=== PATIENT | female | born 1955 | race African-American/Black ===

== ENCOUNTER 2019-09-10 11:56 | Emergency (ER) | payer MEDICARE, OTHER ==
[~2019-09-10] VITALS: Ht 162.6 cm; Wt 68.0 kg
[~2019-09-10 11:56] MED LIST: ACCU CHEK COMP MC; GLIPIZIDE5 MG ORAL; GLUCOPHAGE500 MG ORAL; GLUCOTROL5 MG ORAL; METFORMIN HCL1000 M1 ORAL; METFORMIN HCL1000 M1 PO; PREMARIN0.3 MG ORAL
--- NOTE | 2019-09-10 12:29 | Emergency Room Report ---
History of Present Illness General Chief Complaint: General Complaint Source: Patient (July Fisher Perla) Present Illness HPI History of present illness: 64-year-old diabetic female with past medical history of diabetes presents with complaint of "a bump" on her upper stomach for the last "2 months". Last bowel movement was yesterday and normal. Last oral intake was this morning. Patient states that the bump has progressively been getting bigger. No associated pain, nausea, unintended weight loss, vomiting, diarrhea, hematuria, dysuria, fever, chills. The patient's symptoms were gradual onset, severity was mild, duration since 60 days. Past medical history: Diabetes Past surgical history: Hysterectomy Smoking: Denies Alcohol use: Denies Drug use: Denies Review of systems: CONST: No fevers or chills, No night sweats PULMONARY: No productive cough, No shortness of breath CARDIAC: No chest pain, No palpitations GI: No vomiting, No diarrhea , No melena_or_BRBPR : No dysuria, No hematuria, No discharge NEURO: No new_focal_weakness_or_numbness, No confusion, No vision changes 14 point Review of Systems is otherwise negative except per HPI Physical Exam: GENERAL: Awake_alert_ nontoxic, no acute distress Spo2 98% on [RA], [normal] EYES: Extraocular muscles are intact. Conjunctivae clear. Lids without swelling ENT: External nose and ear normal_in_appearance. Oropharynx clear. Head_ atraumatic, Moist_oral_mucosa NECK: No JVD. No meningismus. No thyromegaly. Supple. Trachea midline RESP: Normal respiratory effort. Symmetric rise. No stridor. Clear_to_ auscultation_No_rales_No_wheezes CARDIAC: Regular rate and regular rhythm on_auscultation No_significant pedal edema. ABDOMEN: Epigastric abdominal mass. Nonpulsating. Nontender to palpation. No CVA tenderness to palpation Soft. Nondistended. Nontender_No_rebound_or_guarding. MSK: Normal muscle tone, without rigidity. Extremities without asymmetric deformity or swelling. SKIN: Warm and dry. No visible cyanosis or pallor NEUROLOGIC: Alert, oriented x3. Motor_and_sensation_grossly_intact. No truncal ataxia. Gait_normal Psych: Normal mood and affect, normal judgment and insight - COORDINATION OF CARE Case was discussed with: Patient Any labs and imaging that were ordered were interpreted as part of the medical decision making: Medical Decision Making/Plan: Differential diagnosis includes mass, ileus, small bowel obstruction, cholecystitis, choledocholithiasis, hepatitis, small bowel obstruction, volvulus , AAA, pancreatitis, atypical appendicitis, gastroparesis, gastritis, peptic ulcer disease, among others. Patient is afebrile, without any significant tenderness in the RUQ, and a negative Florence sign. There is a tennis ball sized-noncompressible mass in the midepigastric region. Will obtain CT imaging in order to further evaluate the etiology of this mass. Labs show critical hyperkalemia. EKG shows prolonged qtc of 461ms. Hyperkalemic cocktail given. CT scan ordered to eval abdominal mass. The patient denies any bloody stool and has no pain out of proportion to exam, and no significant risk factors for mesenteric ischemia such as atrial fibrillation or severe PAD/PVD (peripheral arterial / vascular disease) The patients symptoms are not consistent with ACS (acute coronary syndrome), symptoms are not exertional. Patient will be admitted for hyperkalemia. (July Fisher D.O.) Allergies: Coded Allergies: No Known Allergies (Unverified , 05/29/12) COVID-19 Screening Contact w/high risk pt: No Experienced COVID-19 symptoms?: No COVID-19 Testing performed [employer] SCARFER TENDER: No (July Fisher D.O.) Patient History Now: No (July Fisher D.O.) Nursing Documentation-H Hx Diabetes: Yes - type 2 (July Fisher.[place]) Physical Exam Vital Signs Date Time Temp Pulse Resp B/P (MAP) Pulse Ox O2 Delivery O2 Flow Rate FiO2 09/10/19 12:10 98.1 73 20 145/93 (110) 97 Room Air Sp02 EP Interpretation: reviewed, normal (July Fisher.[place]) Procedures Critical Care Time Critical Care Time Critical Care Statement Organ systems at risk include: [cardiac / circulatory] Critical care performed for 45 minutes. Time is exclusive of separately billable procedures. Time includes: direct patient care, continuous monitoring and multiple patient reassessment, coordination of patient care, review of patient's medical records , medical consultation, family consultation regarding treatment decisions and documentation of patient care. (July Fisher D.O.) Critical Care Time Total critical care time: Approximately 31 minutes Due to a high probability of clinically significant, life threatening deterioration, the patient required the highest level of preparedness to intervene emergently and I personally spent this critical care time directly and personally managing the patient. This critical care time included obtaining a history, examining the patient, pulse oximetry, ordering and reviewing studies , ordering treatments, evaluating response to treatment and updating management plan as needed, frequent reassessment and discussion with other providers as well as arranging for ultimate disposition. This critical to care time was performed to assess and manage the high probability of life-threatening deterioration that could result in multiorgan failure. This critical care time is separate from the separately billable procedures and treating other patients. (Rafi Arriaga MD) Medical Decision Making Diagnostic Impression: Primary Impression: Abdominal mass Additional Impressions: Diabetes Hyperglycemia Hyperkalemia Hypertensive urgency ER Course Assumed care of patient approximately [address] of the abdomen and admission Briefly, this is a 64-year-old female who presented to the emergency department for evaluation of abdominal mass. She was found hypokalemic with a potassium of 5.9 and prolonged QTc interval. Was treated with calcium, insulin/dextrose, Kayexalate. Kidney function within normal limits. Found hyperglycemic as well but no anion gap or other signs of DKA. I was alerted by nursing staff that patient was hypertensive with systolic blood pressures greater than 200. She states she has no history of hypertension and does not take antihypertensive medication. She was given hydralazine with good effect. CT scan does not find an obvious mass to explain the patient's symptoms but it did note a low-lying liver below the costal margin which may explain the palpable mass. Also noted that patient had a distended bladder and some back up into the renal collecting tubule though the patient states she had a full void following CT scan. Denies any problems with urinary retention. She will be admitted to panel physicianMariano (Rafi Arriaga MD) EKG Diagnostic Results PA Scribe Text 12-lead EKG (interpreted by me) Time: 1252 Indication: [Rhythm analysis] Tracing visualized and Interpreted by me. Rhythm: [Normal sinus rhythm] Rate: 61 bpm QTc: 461 Morphology: No_significant_ST_elevations_or_depressions, No STEMI Impression: [Normal_sinus_rhythm_without_significant_abnormality] (July Fisher.[place]) Rhythm Strip Diag. Results Rhythm Strip Time: 13:20 EP Interpretation: yes Rate: 78 Rhythm: NSR, no PVC's, no ectopy Other Impression Normal (July Fisher.Kandice.) Chest X-Ray Diagnostic Results Chest X-Ray Diagnostic Results : KI Swan Text Chest X-ray: Views: 1 view(s) Indication: Rhythm analysis Findings: Normal heart size. Mediastinum normal. No infiltrate. Impression: NAD The X-ray(s) were independently viewed and interpreted contemporaneously - Electronically signed by July washington DO (July Fisher DJono) CT/MRI/US Diagnostic Results CT/MRI/US Diagnostic Results : Impression Impression: No evidence of abdominal mass to explain stated clinical history of palpable lump. The liver extends well below the inferior costal margin, could conceivably be palpable and account for the clinical abnormality. It is otherwise unremarkable Markedly distended bladder, containing at least 1500 mL of fluid. This could also conceivably account for the palpable abnormality. Consider progressive voiding and catheter drainage if necessary followed by clinical evaluation No definite acute abnormality Absent uterus Dictated By: Roosevelt Hernández MD Electronically Signed By: Roosevelt Hernández MD Signed Date/Time 09/10/19 1559 (Rafi Arriaga MD) Last Vital Signs Date Time Temp Pulse Resp B/P (MAP) Pulse Ox O2 Delivery O2 Flow Rate FiO2 09/10/19 12:10 98.1 73 20 145/93 (110) 97 Room Air (July Fisher D.O.) Disposition: ADMITTED INPATIENT Admit Decision Time: 13:53 (July Fisher.Kandice.) Condition: Serious July Fisher D.O. Sep 10, 2019 12:29 Rafi Arriaga MD Sep 10, 2019 15:33
[2019-09-10 12:31] VITALS: BP 150/92
[2019-09-10] MEDS ORDERED: Omnipaque-300 100ml vial INJ PRN (12:45)
[2019-09-10 13:24] LABS: HEMATOCRIT 47.4 % (37.0-47.0); HEMOGLOBIN 15.2 G/DL (12.0-16.0); MEAN CORPUSCULAR VOLUME 89 FL (80-99); PLATELET COUNT 198 K/UL (150-450); RED BLOOD COUNT 5.35 M/UL (4.20-5.40); RED CELL DISTRIBUTION WIDTH 12.7 % (11.6-14.8)
[2019-09-10 13:26] LABS: APPEARANCE,URINE CLEAR; BILIRUBIN, URINE NEGATIVE (NEGATIVE); COLOR,URINE PALE YELLOW; GLUCOSE, URINE (UA) 4+ (NEGATIVE); KETONES,URINE 1+ (NEGATIVE); LEUKOCYTE ESTERASE ,URINE 1+ (NEGATIVE); NITRITE,URINE NEGATIVE (NEGATIVE); PH,URINE 5 (4.5-8.0); PROTEIN,URINE 3+ (NEGATIVE); UROBILINOGEN,URINE NORMAL MG/DL (0.0-1.0)
[2019-09-10 13:29] LABS: INR 0.9 (0.9-1.1)
[2019-09-10 13:37] LABS: ALANINE AMINOTRANSFERASE 65 U/L (12-78); ALBUMIN 3.3 G/DL (3.4-5.0); ALBUMIN/GLOBULIN RATIO 0.8 (1.0-2.7); ALKALINE PHOSPHATASE 96 U/L (46-116); ANION GAP 8 mmol/L (5-15); ASPARTATE AMINO TRANSFERASE 65 U/L (15-37); BILIRUBIN,TOTAL 0.3 MG/DL (0.2-1.0); BLOOD UREA NITROGEN 18 mg/dL (7-18); CALCIUM 8.8 MG/DL (8.5-10.1); CARBON DIOXIDE 25 MMOL/L (21-32); CHLORIDE 99 MMOL/L (98-107); CREATININE 0.7 MG/DL (0.55-1.30); POTASSIUM 5.9 MMOL/L (3.5-5.1); SODIUM 131 MMOL/L (136-145)
[2019-09-10] MEDS ORDERED: cefTRIAXone 1 GM in NS 55 ML IVPB ONE (13:45)
[2019-09-10] MEDS ORDERED: Calcium Gluconate 1gm/10ml vial IVP ONE (13:45)
[2019-09-10] MEDS ORDERED: Insulin Human Regular 100units/ml 3ml IV ONE (13:45)
[2019-09-10] MEDS ORDERED: Sodium Bicarbonate 50ml Carp IV ONE (13:45)
[2019-09-10 14:30] VITALS: BP 172/95
--- NOTE | 2019-09-10 15:09 | Diagnostic Imaging Report ---
Indication: Cough Technique: One view of the chest Comparison: 09/21/2009 Findings: Lungs and pleural spaces are clear. The heart size is normal. The aorta is tortuous and ectatic. The upper mediastinum is unremarkable. No significant interim change Impression: No acute process
--- NOTE | 2019-09-10 16:05 | Diagnostic Imaging Report ---
Clinical Indication: Abdominal pain, palpable upper abdominal mass Technique: No oral contrast utilized, per emergency room physician request IV administration nonionic contrast. Venous phase spiral acquisition obtained through the abdomen and pelvis. Multiplanar reconstructions were generated. Total dose length product 332 mGycm. CTDIvol(s) mGy. Dose reduction achieved using automated exposure control Comparison: none Findings: Bladder is markedly distended, extends cephalad just below the umbilicus, measuring 10.5 cm AP by 11.4 cm transverse by 14.6 cm craniocaudad. Lack of enteric contrast limits assessment of the GI tract. The appendix is normal. No evidence of colonic diverticulosis or diverticulitis. No small bowel distention. No free or loculated intraperitoneal gas or fluid is evident. The distal esophagus, stomach, duodenum are unremarkable. The liver is unremarkable. Of note, it extends well below the costal margin, although does not appear substantially enlarged. The gallbladder, bile ducts, pancreas, spleen, adrenals are unremarkable. There is mild fullness to the bilateral renal collecting systems. The kidneys are otherwise unremarkable. The uterus is absent. No pelvic mass or adenopathy. The included lung bases are clear. The bones are unremarkable. Impression: No evidence of abdominal mass to explain stated clinical history of palpable lump. The liver extends well below the inferior costal margin, could conceivably be palpable and account for the clinical abnormality. It is otherwise unremarkable Markedly distended bladder, containing at least 1500 mL of fluid. This could also conceivably account for the palpable abnormality. Consider progressive voiding and catheter drainage if necessary followed by clinical evaluation No definite acute abnormality Absent uterus The CT scanner at [facility] is accredited by the [employer] and the scans are performed using protocols designed to limit radiation exposure to as low as reasonably achievable to attain images of sufficient resolution adequate for diagnostic evaluation.
[2019-09-10 16:31] VITALS: BP 179/90
--- NOTE | 2019-09-10 16:59 | History and Physical ---
History of Present Illness General Date patient seen: Sep 10, 2019 Time patient seen: 16:27 Reason for Hospitalization: Abdominal mass Present Illness HPI 64 year old female with a PMH of DM come to the hospital with concern of a abdominal mass that she first noticed two months ago. The mass is no painful, does not change in size and is not reducible. She has no pain while eating or engaging in any certain movement. No history of trauma that she can recall. In the ED she was found to be hypertensive at 195/101 and was given hydralazine. CT scan was preformed which was mostly unremarkable despite the liver being below the costal margin and her bladder filed with 1500cc of urine. She was found to be hyperkalemic at 5.9 and given Kayexalate, bicarb and insulin. She will be admitted for hypertensive urgency and hyperkalemia evaluation. Allergies: Coded Allergies: No Known Allergies (Unverified , 05/29/12) COVID-19 Screening Contact w/high risk pt: No Experienced COVID-19 symptoms?: No Medication History Scheduled Estrogens Conjugated (Premarin), 0.3 MG ORAL DAILY Glipizide* (Glucotrol*), 5 MG ORAL BID Glipizide* (Glucotrol*), 5 MG ORAL BID Glipizide* (Glucotrol*), 5 MG ORAL ACBREAKFAST Glipizide* (Glipizide*), 5 MG ORAL BID Metformin Hcl* (Metformin Hcl*), 1,000 MG PO BID Metformin Hcl* (Metformin Hcl*), 1,000 MG ORAL BID Metformin Hcl* (Metformin Hcl*), 1,000 MG ORAL BID Metformin Hcl* (Metformin Hcl*), 1,000 MG ORAL BID Durable Medical Equipment Blood Sugar Diagnostic, Drum (Accu-Chek Compact), 1 EACH , (DME) Patient History History Provided By: Patient Healthcare decision maker Resuscitation status Full code Advanced Directive on File Past Medical/Surgical History Past Medical/Surgical History: (1) Diabetes mellitus Family History Family History: Hiatal hernia Social History Social History: (1) Marijuana smoker (2) Cocaine abuse in remission Review of Systems Constitutional: Reports: no symptoms Eye: Reports: no symptoms ENT: Reports: no symptoms Respiratory: Reports: no symptoms Cardiovascular: Reports: no symptoms Gastrointestinal: Reports: see HPI, other - abdominal mass Genitourinary: Reports: see HPI, retention, incontinence Musculoskeletal: Reports: no symptoms Skin: Reports: other - burn schilling form freebasing cocaine Psychiatric: Reports: no symptoms Neurological: Reports: no symptoms Endocrine: Reports: see HPI, increased urine Hematologic/Lymphatic: Reports: no symptoms Physical Exam General Appearance: no apparent distress, alert, overweight Lines, tubes and drains: peripheral HEENT: normocephalic, atraumatic Neck: normal alignment, supple, normal inspection Respiratory/Chest: chest wall non-tender, lungs clear, normal breath sounds, no respiratory distress, no accessory muscle use Cardiovascular/Chest: normal peripheral pulses, normal rate, regular rhythm, no gallop/murmur, no JVD Abdomen: normal bowel sounds, non tender, soft, no mass, hepatomegaly, other - burn schilling on abdomen Extremities: non-tender, normal inspection, no calf tenderness Neurologic: flat bed knitter II-XII grossly normal, no motor/sensory deficits, alert, oriented x 3, responsive, normal mood/affect Last 24 Hour Vital Signs Date Time Temp Pulse Resp B/P (MAP) Pulse Ox O2 Delivery O2 Flow Rate FiO2 09/10/19 15:36 193/101 09/10/19 12:31 98.1 78 17 150/92 98 Room Air 09/10/19 12:31 78 19 Room Air 97 09/10/19 12:10 98.1 73 20 145/93 (110) 97 Room Air Laboratory Tests Test 09/10/19 13:00 09/10/19 13:04 09/10/19 15:06 White Blood Count 6.0 K/UL (4.8-10.8) Red Blood Count 5.35 M/UL (4.20-5.40) Hemoglobin 15.2 G/DL (12.0-16.0) Hematocrit 47.4 % (37.0-47.0) H Mean Corpuscular Volume 89 FL (80-99) Mean Corpuscular Hemoglobin 28.4 PG (27.0-31.0) Mean Corpuscular Hemoglobin Concent 32.1 G/DL (32.0-36.0) Red Cell Distribution Width 12.7 % (11.6-14.8) Platelet Count 198 K/UL (150-450) Mean Platelet Volume 8.6 FL (6.5-10.1) Neutrophils (%) (Auto) % (45.0-75.0) Lymphocytes (%) (Auto) % (20.0-45.0) Monocytes (%) (Auto) % (1.0-10.0) Eosinophils (%) (Auto) % (0.0-3.0) Basophils (%) (Auto) % (0.0-2.0) Differential Total Cells Counted 100 Neutrophils % (Manual) 33 % (45-75) L Lymphocytes % (Manual) 60 % (20-45) H Monocytes % (Manual) 6 % (1-10) Eosinophils % (Manual) 1 % (0-3) Basophils % (Manual) 0 % (0-2) Band Neutrophils 0 % (0-8) Platelet Estimate Adequate Platelet Morphology Normal Red Blood Cell Morphology Normal Prothrombin Time 10.2 SEC (9.30-11.50) Prothromb Time International Ratio 0.9 (0.9-1.1) Activated Partial Thromboplast Time 23 SEC (23-33) Urine Color Pale yellow Urine Appearance Clear Urine pH 5 (4.5-8.0) Urine Specific [place] 1.015 (1.005-1.035) Urine Protein 3+ (NEGATIVE) H Urine Glucose (UA) 4+ (NEGATIVE) H Urine Ketones 1+ (NEGATIVE) H Urine Blood Negative (NEGATIVE) Urine Nitrite Negative (NEGATIVE) Urine Bilirubin Negative (NEGATIVE) Urine Urobilinogen Normal MG/DL (0.0-1.0) Urine Leukocyte Esterase 1+ (NEGATIVE) H Urine RBC 0 /HPF (0 - 2) Urine WBC 2-4 /HPF (0 - 2) Urine Squamous Epithelial Cells Few /LPF (NONE/OCC) Urine Bacteria Few /HPF (NONE) Sodium Level 131 MMOL/L (136-145) L Potassium Level 5.9 MMOL/L (3.5-5.1) H Chloride Level 99 MMOL/L (98-107) Carbon Dioxide Level 25 MMOL/L (21-32) Anion Gap 8 mmol/L (5-15) Blood Urea Nitrogen 18 mg/dL (7-18) Creatinine 0.7 MG/DL (0.55-1.30) Estimat Glomerular Filtration Rate > 60 mL/min (>60) Glucose Level 361 MG/DL (74-106) H Calcium Level 8.8 MG/DL (8.5-10.1) Total Bilirubin 0.3 MG/DL (0.2-1.0) Aspartate Amino Transf (AST/SGOT) 65 U/L (15-37) H Alanine Aminotransferase (ALT/SGPT) 65 U/L (12-78) Alkaline Phosphatase 96 U/L (46-116) Troponin I 0.000 ng/mL (0.000-0.056) Total Protein 7.7 G/DL (6.4-8.2) Albumin 3.3 G/DL (3.4-5.0) L Globulin 4.4 g/dL Albumin/Globulin Ratio 0.8 (1.0-2.7) L Lipase 241 U/L (73-393) POC Whole Blood Glucose 360 MG/DL (74-106) H 301 MG/DL (74-106) H Height (Feet): 5 Height (Inches): 4.00 Weight (Pounds): 150 Medications Current Medications Medications (Trade) Dose Ordered Sig/Cecilio Route PRN Reason Start Time Stop Time Status Last Admin Dose Admin Barium Sulfate (Readi-Cat 2) 450 ml NOW PRN ORAL Radiology Procedure 09/10/19 12:45 09/12/19 12:45 Iohexol (OMNIPAQUE-300 100ml) 100 ml NOW PRN INJ Radiology Procedure 09/10/19 12:45 09/12/19 12:45 Assessment/Plan Problem List: (1) Hypertensive urgency ICD Codes: I16.0 - Hypertensive urgency SNOMED: 247765109 (2) Hyperkalemia ICD Codes: E87.5 - Hyperkalemia SNOMED: 34979550 (3) Abdominal mass ICD Codes: R19.00 - Intra-abdominal and pelvic swelling, mass and lump, unspecified site SNOMED: 671917681 (4) Marijuana smoker ICD Codes: F12.90 - Cannabis use, unspecified, uncomplicated SNOMED: 414955050 (5) Diabetes mellitus Status: stable Assessment/Plan: 64 year old female with a past medical history of DM come in for painless abdominal mass for the past 2 months. #Hypertensive urgency -Admit to tele -Received hydralazine -Start PO antihypertensive -Troponin reviewed -Lipid panel - 2D echo -Nephrology consult #Hyperkalemia -Tele monitoring -Received insulin, bicarb and lasix -EGK reviewed and qtc 461 #Diabetes mellitus -ISS -Carb Consistent diet -HgA1C #Abdominal mass #Enlarged liver -Review LFTs -Hepatitis panel #Cigarette Smoker #Marijuana Smoker #Cocaine Smoker -Utox -Provided extensive counseling on smoking cessation and offered pharmacotherapy -Social service consult I spent 75 min on this admission. Discussed with ED doctor and consultants. 10 min on Chart review. Independent Image review. I spent 20 min on smoking cessation counseling. Prashant Castro M.D. Sep 10, 2019 16:59
[2019-09-10] MEDS ORDERED: Metoclopramide 10mg/2ml Inj IVP PRN (17:00)
[2019-09-10] MEDS ORDERED: Miralax 17gm pkt ORAL PRN (17:00)
[2019-09-10] MEDS ORDERED: Nitroglycerin Subl 0.4mg tab SL PRN (17:00)
[2019-09-10] MEDS ORDERED: Milk of Magnesia 30ml Ud ORAL PRN (17:00)
[2019-09-10] MEDS ORDERED: Losartan 25mg tab ORAL ONE (17:15)
[2019-09-10 18:18] LABS: CHOLESTEROL 212 MG/DL (< 200); HDL CHOLESTEROL 43 MG/DL (40-60); TRIGLYCERIDES 105 MG/DL (30-150)
[2019-09-10] MEDS ORDERED: Levemir Flexpen SUBQ SCH (21:00)
[2019-09-10] MEDS ORDERED: Heparin 5000 units/ml inj SUBQ SCH (21:00)
[2019-09-10] MEDS ORDERED: NovoLOG Insulin Flexpen SUBQ SCH (21:00)
== END 2019-09-10 17:49 | disposition left against medical advice (07) ==
LOC: EMR 12:35 → EDBEDREQ 14:08 → CANBEDREQ 17:46 → EMR 17:49
DX: R19.06 Epigastric swelling, mass or lump (principal); E87.5 Hyperkalemia; E11.9 Type 2 diabetes mellitus without complications; Z90.710 Acquired absence of both cervix and uterus; E11.65 Type 2 diabetes mellitus with hyperglycemia; I16.0 Hypertensive urgency
CPT/HCPCS: 36415; 71045; 74177; 80053; 80061; 81003; 82962; 83036; 83690; 83735; 84443; 84484; 85007; 85025; 85610; 85730; 93005; 96365; 96375; 99291; J0360; J0610; J0696; J1815; J1940; Q9967